=== PATIENT | female | born 1980 | race African-American/Black ===

== ENCOUNTER 2017-05-13 22:09 | Emergency (ER) | payer OTHER ==
[2017-05-13 22:20] VITALS: BP 121/67; PULSE 100; TEMP 98.5; BMI 25.8
--- NOTE | 2017-05-13 23:23 | PDOC ---
History of Present Illness - General Chief Complaint: Cold Symptoms Stated Complaint: COLD SYMPTOMS Time Seen by Provider: 05/13/17 22:36 - History of Present Illness Initial Comments: 05/13/17 23:17 CHIEF COMPLAINT: flu symptoms, exposure to flu HISTORY OF PRESENT ILLNESS: 36 yo F with no PMH prsents to ED with cough and body aches sinec yesterday . Patient reports two family members recently diagnosed with flu. Patient states she has been tkaing Motrin every 4-6 hours for body aches and therefore she is unsure if her fever "has been suppressed or something." No recent travel or sick contacts. PAST MEDICAL HISTORY: Denies past medical history FAMILY HISTORY: Denies SOCIAL HISTORY:Denies tobacco, alcohol, illicit drug use. SURGICAL HISTORY: Denies ALLERGIES: No known drug allergies REVIEW OF SYSTEMS as per HPI PHYSICAL EXAM General Appearance: Well-appearing, appropriately dressed. No apparent distress. HEENT: EOMI, PERRLA, normal ENT inspection, normal voice, TMs normal, pharynx normal. No conjunctival pallor. No photophobia, scleral icterus. Respiratory/Chest: Lungs CTAB. Cardiovascular: RRR. S1, S2. Gastrointestinal/Abdominal: Normal bowel sounds. Abdomen soft, non-distended. No tenderness or rebound tenderness. No organomegaly, pulsatile mass, guarding , hernia, hepatomegaly, splenomegaly. Musculoskeletal/Extremities: Normal inspection. FROM of all extremities, normal capillary refill. Pelvis Stable. No CVA tenderness. No tenderness to extremities, pedal edema, swelling, erythema or deformity. Integumentary: Appropriate color, dry, warm. No cyanosis, erythema, jaundice or rash Neurologic: field marketer II-XII intact. Fully oriented, alert. Appropriate mood/affect. Motor strength 5/5. No appreciable EOM palsy, facial droop or sensory deficit. 05/13/17 23:29 Past History - Past Medical History Allergies/Adverse Reactions: Allergies Allergy/AdvReac Type Severity Reaction Status Date / Time No Known Allergies Allergy Verified 10/02/12 17:12 Home Medications: Ambulatory Orders No Home Medications 0 dose .ROUTE UTDICT 10/02/12 Dextromethorphan HBr [Tussin Cough] 15 mg PO QID PRN #28 capsule 05/13/17 Oseltamivir Phosphate [Tamiflu] 75 mg PO BID #10 capsule 05/13/17 Pseudoephedrine HCl [Sudafed 12-Hour] 120 mg PO BID PRN #14 tablet.er 05/13/17 COPD: No - Immunization History Immunization Up to Date: Yes - Suicide/Smoking/Psychosocial Hx Smoking Status: No Smoking History: Never smoked Have you smoked in the past 12 months: No Number of Cigarettes Smoked Daily: 0 Information on smoking cessation initiated: No Hx Alcohol Use: No Drug/Substance Use Hx: No Substance Use Type: None *Physical Exam - Vital Signs Last Vital Signs Temp Pulse Resp BP Pulse Ox 98.5 F 100 H 18 121/67 100 05/13/17 22:17 05/13/17 22:17 05/13/17 22:17 05/13/17 22:17 05/13/17 22:17 Medical Decision Making - Medical Decision Making 05/13/17 23:30 36 yo F with no PMH prsents to ED with cough and body aches sinec yesterday . patient is well appearing, exam grossly unremarkable. given history of flu exposure and sudden onset flu like symptoms, will rx tamiflu. Advised patient to take medication as prescribed and follow up with PCP if symptoms persist. Advised patient of signs and symptoms for return to ED. Patient verbalized understanding and agrees to plan. *DC/Admit/Observation/Transfer Diagnosis at time of Disposition: Flu-like symptoms - Discharge Dispostion Disposition: HOME Condition at time of disposition: Stable Admit: No - Prescriptions Prescriptions: Dextromethorphan HBr [Tussin Cough] 15 mg PO QID PRN #28 capsule PRN Reason: Cough Oseltamivir Phosphate [Tamiflu] 75 mg PO BID #10 capsule Pseudoephedrine HCl [Sudafed 12-Hour] 120 mg PO BID PRN #14 tablet.er PRN Reason: congestion/runny nose - Referrals - Patient Instructions Printed Discharge Instructions: DI for Influenza -- Adult Additional Instructions: Please take medications as prescribed. If you develop fever unrelieved by Motrin or Tylenol, vomiting, diarrhea, or any new or worsening symptoms, please return to the ER immediately. - Post Discharge Activity
== END 2017-05-13 23:42 | disposition home or self-care (01) ==
LOC: JER 22:09
DX: J11.1 Influenza due to unidentified influenza virus with other respiratory manifestations (principal)
CPT/HCPCS: 99282-25